=== PATIENT | female | born 1935 | race Caucasian/White ===

== ENCOUNTER 2018-07-26 22:52 | Emergency (ER) | payer OTHER ==
[2018-07-27] MEDS ORDERED: TETANUS & DIPHTHERIA TOX,ADULT 0.5 ML VIAL ONE (00:22)
[2018-07-27] MEDS ORDERED: MORPHINE 4 MG/ML SYR ONE (00:40)
--- NOTE | 2018-07-27 01:18 | EDPHYS ---
Physician Documentation [facility] Name: Barbi Rodriges Age: 82 yrs Sex: Female : 1935 Arrival Date: 07/26/2018 Time: 22:54 Bed 24 Private MD: ED Physician Noble Huston HPI: 07/27 00:18 This 82 yrs old Female presents to ER via Ambulatory with complaints of Fall kdr Injury. 00:18 Details of fall: The patient fell from an upright position, while walking. Onset: The kdr symptoms/episode began/occurred suddenly, at 18:00. Associated injuries: The patient sustained Left wrist and low back. Severity of symptoms: At their worst the symptoms were mild, in the emergency department the symptoms are unchanged. The patient has not experienced similar symptoms in the past. The patient has not recently seen a physician. 03:52 The patient was walking her dog and slipped in some water. Bystanders helped her up and kdr she walked about a block home.. She landed on her buttock. Historical: - Allergies: 07/26 23:18 No Known Allergies; fc - Home Meds: 23:19 Aspirin Oral once daily [Active]; lovastatin [Active]; Metoprolol Tartrate Oral tl3 [Active]; 23:18 Aspirin Oral once daily [Active]; lovastatin [Active]; Metoprolol Tartrate Oral fc [Active]; - PMHx: 23:18 Hypertension; High Cholesterol; Parkinsons; TIA; fc - PSHx: 23:18 FINGER SURGERY; CATARACT; Hysterectomy; fc - Immunization history: Last tetanus immunization: unknown. - Social history:: Smoking status: Patient/guardian denies using tobacco. - Ebola Screening: : Patient negative for fever greater than or equal to 101.5 degrees Fahrenheit, and additional compatible Ebola Virus Disease symptoms Patient denies exposure to infectious person Patient denies travel to an Ebola-affected area in the 21 days before illness onset. ROS: 07/27 03:52 Constitutional: Negative for fever, chills, and weight loss, Eyes: Negative for injury, kdr pain, redness, and discharge, ENT: Negative for injury, pain, and discharge, Neck: Negative for injury, pain, and swelling, Cardiovascular: Negative for chest pain, palpitations, and edema, Respiratory: Negative for shortness of breath, cough, wheezing, and pleuritic chest pain, Abdomen/GI: Negative for abdominal pain, nausea, vomiting, diarrhea, and constipation, : Negative for injury, bleeding, discharge, and swelling, Skin: Negative for injury, rash, and discoloration, Neuro: Negative for headache, weakness, numbness, tingling, and seizure activity. Psych: Negative for depression, anxiety, suicide ideation, homicidal ideation, and hallucinations, Allergy/Immunology: Negative for hives, rash, and allergies, Endocrine: Negative for neck swelling, polydipsia, polyuria, polyphagia, and marked weight changes, Hematologic/Lymphatic: Negative for swollen nodes, abnormal bleeding, and unusual bruising. Back: Positive for injury or acute deformity, decreased range of motion, pain at rest, pain with movement, of the lumbar area, She also has pain to her left wrist with mild deformity. Exam: 03:52 Constitutional: This is a well developed, well nourished patient who is awake, alert, kdr and in no acute distress. Head/Face: Normocephalic, atraumatic. Eyes: Pupils equal round and reactive to light, extra-ocular motions intact. Lids and lashes normal. Conjunctiva and sclera are non-icteric and not injected. Cornea within normal limits. Periorbital areas with no swelling, redness, or edema. Neck: Trachea midline, no thyromegaly or masses palpated, and no cervical lymphadenopathy. Supple, full range of motion without nuchal rigidity, or vertebral point tenderness. No Meningismus. Chest/axilla: Normal chest wall appearance and motion. Nontender with no deformity. No lesions are appreciated. Cardiovascular: Regular rate and rhythm with a normal S1 and S2. No gallops, murmurs, or rubs. Normal PMI, no JVD. No pulse deficits. Respiratory: Lungs have equal breath sounds bilaterally, clear to auscultation and percussion. No rales, rhonchi or wheezes noted. No increased work of breathing, no retractions or nasal flaring. Abdomen/GI: Soft, non-tender, with normal bowel sounds. No distension or tympany. No guarding or rebound. No evidence of tenderness throughout. Back: No spinal tenderness. No costovertebral tenderness. Full range of motion. Skin: Warm, dry with normal turgor. Normal color with no rashes, no lesions, and no evidence of cellulitis. Neuro: Awake and alert, GCS 15, oriented to person, place, time, and situation. Cranial nerves II-XII grossly intact. Motor strength 5/5 in all extremities. Sensory grossly intact. Cerebellar exam normal. Normal gait. Psych: Awake, alert, with orientation to person, place and time. Behavior, mood, and affect are within normal limits. 03:52 Musculoskeletal/extremity: ROM: limited active range of motion, limited passive range of motion, in the left wrist. Vital Signs: 07/26 23:00 BP 174 / 85; Pulse 72; Resp 18; Temp 98.0(O); Pulse Ox 95% on R/A; Weight 58.06 kg (R); fc Height 5 ft. 4 in. (162.56 cm) (R); Pain 7/10; 07/27 00:54 BP 166 / 74; Pulse 81; Pulse Ox 98% on R/A; rv 07/26 23:00 Body Mass Index 21.97 (58.06 kg, 162.56 cm) fc Washington Coma Score: 07/26 23:00 Eye Response: spontaneous(4). Verbal Response: oriented(5). Motor Response: obeys fc commands(6). Total: 15. Trauma Score (Adult): 23:00 Eye Response: spontaneous(1); Verbal Response: oriented(1); Motor Response: obeys fc commands(2); Systolic BP: > 89 mm Hg(4); Respiratory Rate: 10 to 29 per min(4); Washington Score: 15; Trauma Score: 12 MDM: 07/27 01:17 Patient medically screened. kdr 03:52 Data reviewed: vital signs, nurses notes, radiologic studies. Counseling: I had a kdr detailed discussion with the patient and/or guardian regarding: the historical points, exam findings, and any diagnostic results supporting the discharge/admit diagnosis, radiology results, the need for outpatient follow up. 07/26 23:29 Order name: Lumbar Spine (3 Views) XRAY fc 07/26 23:29 Order name: Wrist Left (3 View) XRAY 07/27 00:13 Order name: Wrist Splint: Left wrist; Complete Time: 00:51 kdr 07/27 00:13 [facility] 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 Exp: rv 09/18/2020. Lot #: [id number]. } Route: IM; Site: right deltoid; 01:25 Follow up: Response: No adverse reaction rv 00:38 Drug: morphine 4 mg Route: IM; Site: left deltoid; rv 01:25 Follow up: Response: No adverse reaction rv Disposition: 07/27/18 01:17 Discharged to Home. Impression: Other slipping, tripping and stumbling and falls, Pain in left wrist, Unspecified sprain of left wrist, Low back pain. - Condition is Stable. - Discharge Instructions: Musculoskeletal Pain, Back Pain, Adult, [id number], Wrist Pain, [id number], Wrist Sprain. - Medication Reconciliation Form, Thank You Letter, Prescription Opioid Use form. - Follow up: Private Physician; When: 2 - 3 days; Reason: If symptoms return, Further diagnostic work-up, Recheck today's complaints, Continuance of care, Re-evaluation by your physician. - Problem is new. - Symptoms have improved. Signatures: Dispatcher [employer] EDMS Noble Huston MD MD kdr Desi Mckeon RN RN Lashae Rivera RN RN tl3 Bay Jones, RN RN rv Corrections: (The following items were deleted from the chart) 01:26 01:17 07/27/2018 01:17 Discharged to Home. Impression: Other slipping, tripping and rv stumbling and falls; Pain in left wrist; Unspecified sprain of left wrist; Low back pain. Condition is Stable. Forms are Medication Reconciliation Form, Thank You Letter, Antibiotic Education, Prescription Opioid Use. Follow up: Private Physician; When: 2 - 3 days; Reason: If symptoms return, Further diagnostic work-up, Recheck today's complaints, Continuance of care, Re-evaluation by your physician. Problem is new. Symptoms have improved. kdr
--- NOTE | 2018-07-27 01:18 | ER ---
Nurse's Notes [facility] Name: Barbi Rodriges Age: 82 yrs Sex: Female : 1935 Arrival Date: 07/26/2018 Time: 22:54 Bed 24 Private MD: Diagnosis: Other slipping, tripping and stumbling and falls;Pain in left wrist;Unspecified sprain of left wrist;Low back pain Presentation: 07/26 23:00 Presenting complaint: Patient states: that she fell at 1800 and is having left wrist fc pain and butt pain. Denies hitting head. Care prior to arrival: Medication(s) given: Tylenol with codeine at 2250. Mechanism of Injury: Fall from standing position. Trauma event details: Injury occurred in the [facility], Injury occurred: at home. Injury occurred: July 26, 2018 Injury occurred at: 23:00. 23:00 Acuity: HEATHER 3 fc 23:00 Method Of Arrival: Ambulatory fc 23:00 Transition of care: patient was not received from another setting of care. Onset of fc symptoms was July 26, 2018 at 18:00. Risk Assessment: Do you want to hurt yourself or someone else? Patient reports no desire to harm self or others. Initial Sepsis Screen: Does the patient meet any 2 criteria? No. Patient's initial sepsis screen is negative. Does the patient have a suspected source of infection? No. Patient's initial sepsis screen is negative. Historical: - Allergies: 23:18 No Known Allergies; fc - Home Meds: 23:19 Aspirin Oral once daily [Active]; lovastatin [Active]; Metoprolol Tartrate Oral tl3 [Active]; 23:18 Aspirin Oral once daily [Active]; lovastatin [Active]; Metoprolol Tartrate Oral fc [Active]; - PMHx: 23:18 Hypertension; High Cholesterol; Parkinsons; TIA; fc - PSHx: 23:18 FINGER SURGERY; CATARACT; Hysterectomy; fc - Immunization history: Last tetanus immunization: unknown. - Social history:: Smoking status: Patient/guardian denies using tobacco. - Ebola Screening: : Patient negative for fever greater than or equal to 101.5 degrees Fahrenheit, and additional compatible Ebola Virus Disease symptoms Patient denies exposure to infectious person Patient denies travel to an Ebola-affected area in the 21 days before illness onset. Screenin:00 Abuse screen: Denies threats or abuse. Tuberculosis screening: No symptoms or risk fc factors identified. 23:00 Nutritional screening: No deficits noted. Fall Risk Fall in past 12 months (25 points). fc Secondary diagnosis (15 points) TIA, parkinson's. No IV (0 pts). Ambulatory Aid- None/Bed Rest/Nurse Assist (0 pts). Gait- Weak (10 pts.). Mental Status- Overestimates/Forgets Limitations (15 pts.). Total Emmanuel Fall Scale indicates Low Risk Score (25-44 pts). Fall prevention measures have been instituted. Side Rails Up X 2 Placed close to Nursing Station Frequent Obs/Assesments occuring Family Present and informed to notify staff if they need to leave bedside As available Patient and Family Educated on Fall Prevention Program and strategies. Primary Survey: 23:52 Breathing/Chest: Respiratory pattern: regular. Circulation: Cardiac rhythm: sinus rv rhythm. Disability Alert. 07/27 01:25 Reassessment Breathing/Chest Respiratory pattern Regular. rv Assessment: 07/26 23:15 General: Appears uncomfortable, slender, well groomed, well developed, well nourished, tl3 Behavior is calm, cooperative, appropriate for age. Pain: Complains of pain in left wrist Pain currently is 7 out of 10 on a pain scale. Neuro: Level of Consciousness is awake, alert, Oriented to person, place, time, situation, Appropriate for age. Cardiovascular: Patient's skin is warm and dry. Respiratory: Airway is patent Respiratory effort is even, unlabored, Respiratory pattern is regular, symmetrical. GI: No signs and/or symptoms were reported involving the gastrointestinal system. : No signs and/or symptoms were reported regarding the genitourinary system. EENT: No signs and/or symptoms were reported regarding the EENT system. Derm: No signs and/or symptoms reported regarding the dermatologic system. Musculoskeletal: Capillary refill < 3 seconds, in left fingers. Range of motion: limited in left wrist Swelling present in left wrist. 07/27 00:53 Reassessment: Patient appears in no apparent distress at this time. Patient and/or rv family updated on plan of care and expected duration. Pain level reassessed. Patient is alert, oriented x 3, equal unlabored respirations, skin warm/dry/pink. Vital Signs: 07/26 23:00 BP 174 / 85; Pulse 72; Resp 18; Temp 98.0(O); Pulse Ox 95% on R/A; Weight 58.06 kg (R); fc Height 5 ft. 4 in. (162.56 cm) (R); Pain 7/10; 07/27 00:54 BP 166 / 74; Pulse 81; Pulse Ox 98% on R/A; rv 07/26 23:00 Body Mass Index 21.97 (58.06 kg, 162.56 cm) fc Viviane Coma Score: 07/26 23:00 Eye Response: spontaneous(4). Verbal Response: oriented(5). Motor Response: obeys commands(6). Total: 15. Trauma Score (Adult): 23:00 Eye Response: spontaneous(1); Verbal Response: oriented(1); Motor Response: obeys commands(2); Systolic BP: > 89 mm Hg(4); Respiratory Rate: 10 to 29 per min(4); Viviane Score: 15; Trauma Score: 12 ED Course: 22:54 Patient arrived in ED. ag3 23:00 Patient has correct armband on for positive identification. Bed in low position. Call fc light in reach. Side rails up X 1. 23:00 Arm band placed on Patient placed in an exam room, on a stretcher. fc 23:00 Patient maintains SpO2 saturation greater than 95% on room air. fc 23:14 Triage completed. fc 23:15 Lashae Rivera, RN is Primary Nurse. tl3 23:19 No provider procedures requiring assistance completed. Patient did not have IV access tl3 during this emergency room visit. 23:38 Patient moved to radiology via stretcher. ag1 23:50 Noble Huston MD is Attending Physician. kdr 23:51 X-ray completed. Patient tolerated procedure well. ag1 23:51 Lumbar Spine (3 Views) XRAY In Process Unspecified. EDMS 23:52 Wrist Left (3 View) XRAY In Process Unspecified. EDMS 23:52 Thermoregulation: warm blanket given to patient. 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 Exp: rv 09/18/2020. Lot #: [id number]. } Route: IM; Site: right deltoid; 01:25 Follow up: Response: No adverse reaction rv 00:38 Drug: morphine 4 mg Route: IM; Site: left deltoid; rv 01:25 Follow up: Response: No adverse reaction rv Outcome: 01:17 Discharge ordered by . kdr 01:25 Discharged to home via wheelchair. rv 01:25 Condition: good 01:25 Discharge instructions given to patient, family, Instructed on discharge instructions, follow up and referral plans. Demonstrated understanding of instructions, follow-up care, splint care. 01:26 Patient left the ED. rv Signatures: Dispatcher [employer] EDMS Noble Huston MD MD [facility] Desi Mckeon RN RN Shelli Cam ag1 Demetra Pittman jb5 Lashae Rivera RN RN tl3 Bay Jones RN RN Amy Carrillo ag3
--- NOTE | 2018-07-27 08:45 | RAD REPORT ---
EXAM DESCRIPTION: RAD - Wrist Left 3 View - 07/26/2018 11:52 pm CLINICAL HISTORY: Fall, wrist pain COMPARISON: None. FINDINGS: No fracture of the distal radius or ulna identifiable. Scapholunate joint space is normal. There is mild narrowing of the radiocarpal joint space. Patient has advanced degenerative change at the scaphoid articulation with the trapezium and trapezoi d bones. There is a flattened sclerotic contour to the distal aspect of the scaphoid articular surfac e. There are sclerotic changes and concavity to the articular surfaces of the trapezium and trapezoid with widening of the joint space between the scaphoid trapezium and trapezoid bones. Patient has add itional more mild degenerative change at the trapezium first metacarpal articulation. Assessment of the scaphoid is limited. Transverse fracture of the midbody scaphoid is suspected. The widening of the scaphoid trapezium joint spaces and usual. Patient could have scar tissue or granulat ion tissue filling this joint space. Patient alternatively could have posttraumatic ligamentous disru ption causing joint space laxity. No foreign body or other soft tissue abnormality. IMPRESSION: Suspected fracture of the scaphoid. Prominent degenerative change at the articulation of the scaphoid with the trapezium and trapezoid ana yan. Significant widening of this joint space could be secondary to a ligamentous disruption or possi farhat scar tissue or granulation tissue within this joint space.
--- NOTE | 2018-07-27 09:54 | RAD REPORT ---
EXAM DESCRIPTION: RAD - Lumbar Spine 3 Views - 07/26/2018 11:59 pm CLINICAL HISTORY: Fall, back pain COMPARISON: July 10 FINDINGS: A three-view lumbar spine examination was performed. Lumbar body height and alignment are unchanged from the prior study. Left convex degenerative scoliotic curvature remains. There is slight retrolisthesis of L2 on L3. Advanced disc degenerative change throughout the lumbar spine. No pathol ogic bone process seen. Disc space narrowing is seen at multiple levels. No pars defects identified. IMPRESSION: No compression fracture or acute vertebral body finding. Extensive lumbar degenerative changes are present similar to July 10.
== END 2018-07-27 01:26 | disposition home or self-care (01) ==
LOC: ER 22:52
DX: S63.502A Unspecified sprain of left wrist, initial encounter (principal); M54.5 Low back pain; W01.0XXA Fall on same level from slipping, tripping and stumbling without subsequent striking against object, initial encounter; Y93.K1 Activity, walking an animal; Y92.9 Unspecified place or not applicable; Z23 Encounter for immunization; Z79.82 Long term (current) use of aspirin; I10 Essential (primary) hypertension; G20 Parkinson's disease; E78.00 Pure hypercholesterolemia, unspecified
CPT/HCPCS: 72100; 90714; 96372; 99284

== ENCOUNTER 2019-11-19 15:51 | Emergency (ER) | payer OTHER ==
--- NOTE | 2019-11-19 17:01 | RAD REPORT ---
EXAM DESCRIPTION: CT - Facial Bones W/ Mpr - 11/19/2019 4:38 pm CLINICAL HISTORY: Facial injury status post fall. Facial pain COMPARISON: None TECHNIQUE: Computed axial tomography of the face was obtained. Coronal and sagittal reconstruction w as performed. All CT scans are performed using dose optimization technique as appropriate and may include automated exposure control or mA/KV adjustment according to patient size. FINDINGS: A fracture is not seen. A TMJ dislocation is not noted. The globes are intact. Fluid within the sinuses is not seen. Nasal septum is deviated towards the right IMPRESSION: Negative for a facial fracture.
--- NOTE | 2019-11-19 17:05 | RAD REPORT ---
EXAM DESCRIPTION: CT - Head C Spine Mpr Wo Con - 11/19/2019 4:38 pm CLINICAL HISTORY: Head and neck injury status post fall. Head and neck pain COMPARISON: None. TECHNIQUE: Computed axial tomography of the head and cervical spine was obtained. Sagittal and coronal reconstruction was performed. All CT scans are performed using dose optimization technique as appropriate and may include automated exposure control or mA/KV adjustment according to patient size. FINDINGS: An intracranial bleed is not seen. The ventricles are normal in caliber. An extra-axial fl uid collection is not noted. Mild to moderate low-density areas within periventricular, deep and subc ortical white matter likely ischemic changes secondary to small vessel disease. Fluid within the visu alized sinuses and mastoids is not seen A cervical fracture is not visualized. No dislocation is noted. IMPRESSION: No acute intracranial abnormality is seen. A cervical fracture is not visualized. If the patient continues to have symptoms to suggest intracra nial /spinal cord pathology then MRI would be recommended
--- NOTE | 2019-11-19 17:16 | RAD REPORT ---
EXAM DESCRIPTION: RAD - Hip Right 2 View - 11/19/2019 5:00 pm CLINICAL HISTORY: Right hip pain FINDINGS: No fracture or dislocation is seen. The bones are osteoporotic. If the patient continues to have symptoms to suggest an occult fracture MRI would be recommended
--- NOTE | 2019-11-19 17:17 | RAD REPORT ---
EXAM DESCRIPTION: RAD - Knee Right 3 View - 11/19/2019 5:00 pm CLINICAL HISTORY: Right knee pain status post injury FINDINGS: No fracture or dislocation is seen. The bones are osteoporotic
--- NOTE | 2019-11-19 17:20 | RAD REPORT ---
EXAM DESCRIPTION: RAD - Hand Right 3 View - 11/19/2019 5:00 pm CLINICAL HISTORY: Right hand pain status post injury FINDINGS: Moderately displaced oblique fracture involves the mid aspect of fourth proximal phalanx. The bones are osteoporotic. 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
--- NOTE | 2019-11-19 17:25 | ER ---
Nurse's Notes [facility] Name: Barbi Rodriges Age: 84 yrs Sex: Female : 1935 Arrival Date: 11/19/2019 Time: 15:57 Bed 26 Private MD: Ritesh Morales Diagnosis: Superficial injury of head;Contusion of right knee;Contusion of nose;Displaced fracture of proximal phalanx of right ring finger Presentation: 11/19 16:12 Presenting complaint: Child states: She has Parkinson's. She was at a when she ca1 tripped and fell forward about an hour ago. Denies LOC, Not on blood thinners. Lac and bruising on nose visible. C/O of R knee, R hip, R hand pain. Transition of care: patient was not received from another setting of care. Onset of symptoms was November 19, 2019. Risk Assessment: Do you want to hurt yourself or someone else? Patient reports no desire to harm self or others. Initial Sepsis Screen: Does the patient meet any 2 criteria? No. Patient's initial sepsis screen is negative. Does the patient have a suspected source of infection? No. Patient's initial sepsis screen is negative. Care prior to arrival: None. 16:12 Method Of Arrival: Wheelchair ca1 16:12 Acuity: HEATHER 3 ca1 16:21 Mechanism of Injury: Fall from standing position. Trauma event details: Injury occurred ca1 in the [facility], Injury occurred: November 19, 2019 Injury occurred at: 15:00. Trauma Activation: Not Applicable Physician: ED Physician; Name: ; Notified At: ; Arrived At: Physician: General Surgeon; Name: ; Notified At: ; Arrived At: Physician: Radiology; Name: ; Notified At: ; Arrived At: Physician: Respiratory; Name: ; Notified At: ; Arrived At: Physician: Lab; Name: ; Notified At: ; Arrived At: Historical: - Allergies: 16:20 No Known Allergies; ca1 - Home Meds: 16:20 Lovastatin Oral [Active]; Meclizine Oral [Active]; Metoprolol Tartrate Oral [Active]; ca1 Hydralazine Oral [Active]; Carbidopa-Levodopa Oral [Active]; - PMHx: 16:20 High Cholesterol; Hypertension; Parkinsons; TIA; ca1 - Immunization history:: Adult Immunizations up to date, Last tetanus immunization: unknown, Pneumococcal vaccine is up to date, Flu vaccine is up to date. - Coronavirus screen:: The patient has NOT traveled to [place] in the past 14 days. The patient has NOT had contact with known/suspected case of Coronavirus?. - Immunization history: Last tetanus immunization: unknown. - Social history:: Smoking status: Patient denies any tobacco usage or history of. - Ebola Screening: : Patient negative for fever greater than or equal to 101.5 degrees Fahrenheit, and additional compatible Ebola Virus Disease symptoms Patient denies exposure to infectious person Patient denies travel to an Ebola-affected area in the 21 days before illness onset No symptoms or risks identified at this time. Screenin:21 Abuse screen: Denies threats or abuse. Denies injuries from another. Tuberculosis ca1 screening: No symptoms or risk factors identified. 16:27 Nutritional screening: No deficits noted. Fall Risk Fall in past 12 months (25 points). ca1 Secondary diagnosis (15 points) TIA, impaired mobility, IV access (20 points). Gait- Impaired (20 pts.). Total Emmanuel Fall Scale indicates High Risk Score (45 or more points). Fall prevention measures have been instituted. Side Rails Up X 2 Family Present and informed to notify staff if the need to leave the bedside As available patient and family educated on Fall Prevention Program and Strategies. Primary Survey: 16:21 NO uncontrolled hemorrhage observed. Breathing/Chest: Respiratory pattern: regular, ca1 Respiratory effort: spontaneous, unlabored, Chest inspection: symmetrical rise and fall of the chest. Circulation: Skin color: pink, Skin temperature: warm, dry. Disability Alert. Exposure/Environment: All clothing and personal items were removed. Forensic evidence collection is not deemed to be indicated at this time. Items placed in patient belonging bag. There is no evidence of uncontrolled external bleeding. Obvious injury(ies) are noted at this time: bruising on R hand, R knee, lac and bruising on nose A warming method has been applied: A warm blanket has been provided to the patient. 17:17 Reassessment Airway Airway Breathing/Chest Respiratory pattern Regular Respiratory ca1 effort Spontaneous Unlabored Chest inspection Symmetrical Circulation Heart tones Present Pulses Palpable Color [place] Temperature Warm Dry. Assessment: 16:21 General: Appears in no apparent distress. comfortable, Behavior is cooperative, ca1 appropriate for age, anxious. Pain: Complains of pain in right hip, right arm and right leg. Neuro: Level of Consciousness is awake, alert, obeys commands, Oriented to person, place, time, situation. EENT: No signs and/or symptoms were reported regarding the EENT system. Cardiovascular: Heart tones S1 S2 present Capillary refill < 3 seconds Patient's skin is warm and dry. Respiratory: Airway is patent Respiratory effort is even, unlabored, Respiratory pattern is regular, symmetrical. Derm: Skin is intact, is healthy with good turgor, Skin is pink, warm \T\ dry. Musculoskeletal: Circulation, motion, and sensation intact. Capillary refill < 3 seconds. 17:17 Reassessment: Patient appears in no apparent distress at this time. Patient and/or ca1 family updated on plan of care and expected duration. Pain level reassessed. Patient is alert, oriented x 3, equal unlabored respirations, skin warm/dry/pink. 17:45 Reassessment: Patient appears in no apparent distress at this time. Patient is alert, ca1 oriented x 3, equal unlabored respirations, skin warm/dry/pink. Vital Signs: 16:20 BP 156 / 75; Pulse 66; Resp 17 S; Temp 98(O); Pulse Ox 99% on R/A; Weight 54.43 kg (R); ca1 Height 5 ft. 5 in. (165.10 cm) (R); 17:17 BP 168 / 69; Pulse 66; Resp 17 S; Pulse Ox 97% on R/A; ca1 17:45 BP 158 / 85; Pulse 66; Resp 17 S; Pulse Ox 99% on R/A; ca1 16:20 Body Mass Index 19.97 (54.43 kg, 165.10 cm) ca1 Dinosaur Coma Score: 16:21 Eye Response: spontaneous(4). Verbal Response: oriented(5). Motor Response: obeys ca1 commands(6). Total: 15. 18:02 Eye Response: spontaneous(4). Verbal Response: oriented(5). Motor Response: obeys mg2 commands(6). Total: 15. Trauma Score (Adult): 16:21 Eye Response: spontaneous(1); Verbal Response: oriented(1); Motor Response: obeys ca1 commands(2); Systolic BP: > 89 mm Hg(4); Respiratory Rate: 10 to 29 per min(4); Viviane Score: 15; Trauma Score: 12 18:02 Eye Response: spontaneous(1); Verbal Response: oriented(1); Motor Response: obeys mg2 commands(2); Systolic BP: > 89 mm Hg(4); Respiratory Rate: 10 to 29 per min(4); [place]inosaur Score: 15; Trauma Score: 12 ED Course: 15:57 Patient arrived in ED. mr 15:57 Ritesh Morales MD is Private Physician. mr 16:02 George Vanessa PA is PHCP. jr8 16:02 Cecil Sr MD is Attending Physician. jr8 16:12 Carmela Salomon, DAVID is Primary Nurse. ca1 16:16 Triage completed. ca1 16:20 Arm band placed on right wrist. ca1 16:21 Patient has correct armband on for positive identification. Placed in gown. Bed in low ca1 position. Call light in reach. Side rails up X2. 16:21 Patient maintains SpO2 saturation greater than 95% on room air. ca1 16:27 Pulse ox on. NIBP on. Warm blanket given. ca1 16:28 Thermoregulation: warm blanket given to patient. ca1 16:44 CT Head C Spine In Process Unspecified. EDMS 16:44 Facial Bones W/O Con CT In Process Unspecified. EDMS 17:02 XRAY Hand RIGHT 3 View In Process Unspecified. EDMS 17:02 XRAY Knee RIGHT 3 view In Process Unspecified. EDMS 17:02 XRAY Hip RIGHT 2 view In Process Unspecified. EDMS 17:23 Eric Wright MD is Referral Physician. jr8 18:01 No provider procedures requiring assistance completed. Patient did not have IV access mg2 during this emergency room visit. Orthoglass splint: Ulnar gutter/Boxer splint applied on right forearm. applied by KASANDRA Mcbride and checked by the provider prior to dc. Administered Medications: No medications were administered Intake: 18:03 PO: 0ml; Total: 0ml. mg2 Outcome: 17:25 Discharge ordered by . jr8 18:03 Discharged to home ambulatory, with family. mg2 18:03 Condition: good 18:03 Discharge instructions given to patient, family, Instructed on discharge instructions, follow up and referral plans. Demonstrated understanding of instructions, follow-up care, splint care. 18:03 Patient's length of stay was not longer than 2 hours. mg2 18:04 Patient left the ED. mg2 Signatures: Dispatcher [employer] EDMS ToddVivian VeritoGeorge cason PA PA jr8 Vincent Garcia, RN RN mg2 Carmela Salomon RN RN ca1
--- NOTE | 2019-11-19 17:26 | EDPHYS ---
Physician Documentation [facility] Name: Barbi Rodriges Age: 84 yrs Sex: Female : 1935 Arrival Date: 11/19/2019 Time: 15:57 Bed 26 Private MD: Ritesh Morales ED Physician Cecil Sr HPI: 11/19 16:18 This 84 yrs old Female presents to ER via Wheelchair with complaints of Fall jr8 Injury. 16:18 Details of fall: The patient fell from an upright position, while standing. Onset: The jr8 symptoms/episode began/occurred acutely, today. Associated injuries: The patient sustained injury to the head, right hand and right leg, face. Severity of symptoms: At their worst the symptoms were moderate, in the emergency department the symptoms are unchanged. The patient has not experienced similar symptoms in the past. The patient has not recently seen a physician. Patient was at and misstep causing her to fall and hit face and right side of body. Pain since incident. Denies LOC . Historical: - Allergies: 16:20 No Known Allergies; ca1 - Home Meds: 16:20 Lovastatin Oral [Active]; Meclizine Oral [Active]; Metoprolol Tartrate Oral [Active]; ca1 Hydralazine Oral [Active]; Carbidopa-Levodopa Oral [Active]; - PMHx: 16:20 High Cholesterol; Hypertension; Parkinsons; TIA; ca1 - Immunization history:: Adult Immunizations up to date, Last tetanus immunization: unknown, Pneumococcal vaccine is up to date, Flu vaccine is up to date. - Coronavirus screen:: The patient has NOT traveled to [place] in the past 14 days. The patient has NOT had contact with known/suspected case of Coronavirus?. - Immunization history: Last tetanus immunization: unknown. - Social history:: Smoking status: Patient denies any tobacco usage or history of. - Ebola Screening: : Patient negative for fever greater than or equal to 101.5 degrees Fahrenheit, and additional compatible Ebola Virus Disease symptoms Patient denies exposure to infectious person Patient denies travel to an Ebola-affected area in the 21 days before illness onset No symptoms or risks identified at this time. ROS: 16:18 Eyes: Negative for injury, pain, redness, and discharge, Neck: Negative for injury, jr8 pain, and swelling, Cardiovascular: Negative for chest pain, palpitations, and edema, Respiratory: Negative for shortness of breath, cough, wheezing, and pleuritic chest pain, Abdomen/GI: Negative for abdominal pain, nausea, vomiting, diarrhea, and constipation, Back: Negative for injury and pain. 16:18 ENT: Positive for injury or acute deformity, Negative for dental pain. 16:18 MS/extremity: Positive for ecchymosis, pain, swelling, tenderness, of the right hand and right leg. 16:18 Skin: Positive for abrasion(s). 16:18 Neuro: Positive for headache, Negative for altered mental status, dizziness, loss of consciousness, syncope. Exam: 16:18 Eyes: Pupils equal round and reactive to light, extra-ocular motions intact. Lids and jr8 lashes normal. Conjunctiva and sclera are non-icteric and not injected. Cornea within normal limits. Periorbital areas with no swelling, redness, or edema. Neck: Trachea midline, no thyromegaly or masses palpated, and no cervical lymphadenopathy. Supple, full range of motion without nuchal rigidity, or vertebral point tenderness. No Meningismus. Chest/axilla: Normal chest wall appearance and motion. Nontender with no deformity. No lesions are appreciated. Cardiovascular: Regular rate and rhythm with a normal S1 and S2. No gallops, murmurs, or rubs. Normal PMI, no JVD. No pulse deficits. Respiratory: Lungs have equal breath sounds bilaterally, clear to auscultation and percussion. No rales, rhonchi or wheezes noted. No increased work of breathing, no retractions or nasal flaring. Abdomen/GI: Soft, non-tender, with normal bowel sounds. No distension or tympany. No guarding or rebound. No evidence of tenderness throughout. Back: No spinal tenderness. No costovertebral tenderness. Full range of motion. Skin: Warm, dry with normal turgor. Normal color with no rashes, no lesions, and no evidence of cellulitis. Neuro: Awake and alert, GCS 15, oriented to person, place, time, and situation. Cranial nerves II-XII grossly intact. Motor strength 5/5 in all extremities. Sensory grossly intact. Cerebellar exam normal. Normal gait. 16:18 ENT: Exam is negative for earache, ear discharge, hemotympanum, TM abnormalities, Nose: External nose: abrasion is noted, deformity is noted, swelling is noted, Nasal septum: deviates to the left, no septal hematoma appreciated, Nasal mucosa: moist, Turbinates: are normal, bleeding, is not appreciated, Mouth: is normal, no laceration, no gum abnomalities, no lip abnormalities, no mucosal abnormalities, no tongue abnormalities, Posterior pharynx: Airway: patent, Uvula: midline, Dental exam: normal, no avulsion, no fractured teeth, no gum swelling, no injury, no malocclusion, no missing teeth, no pain, no trismus. 16:18 Musculoskeletal/extremity: Extremities: grossly normal except: noted in the right hand: Patient has swelling and small hematoma to right dorsal hand at the 4th and 5th MCP joints. Bruising to distal 3rd digit, noted in the right knee: ecchymosis, pain, tenderness, anterior right knee over the patella, pain, tenderness, right lateral hip over the greater trochanteric region , ROM: intact in all extremities, limited active range of motion due to pain, in the right leg, Circulation is intact in all extremities. Pulses: noted to be 2+ in the right radial artery, right dorsalis pedis artery, left radial artery and left dorsalis pedis artery, Sensation intact. Vital Signs: 16:20 BP 156 / 75; Pulse 66; Resp 17 S; Temp 98(O); Pulse Ox 99% on R/A; Weight 54.43 kg (R); ca1 Height 5 ft. 5 in. (165.10 cm) (R); 17:17 BP 168 / 69; Pulse 66; Resp 17 S; Pulse Ox 97% on R/A; ca1 17:45 BP 158 / 85; Pulse 66; Resp 17 S; Pulse Ox 99% on R/A; ca1 16:20 Body Mass Index 19.97 (54.43 kg, 165.10 cm) ca1 [place] Coma Score: 16:21 Eye Response: spontaneous(4). Verbal Response: oriented(5). Motor Response: obeys ca1 commands(6). Total: 15. 18:02 Eye Response: spontaneous(4). Verbal Response: oriented(5). Motor Response: obeys mg2 commands(6). Total: 15. Trauma Score (Adult): 16:21 Eye Response: spontaneous(1); Verbal Response: oriented(1); Motor Response: obeys ca1 commands(2); Systolic BP: > 89 mm Hg(4); Respiratory Rate: 10 to 29 per min(4); [place] Score: 15; Trauma Score: 12 18:02 Eye Response: spontaneous(1); Verbal Response: oriented(1); Motor Response: obeys mg2 commands(2); Systolic BP: > 89 mm Hg(4); Respiratory Rate: 10 to 29 per min(4); Viviane Score: 15; Trauma Score: 12 Procedures: 17:09 Splinting: Splint applied to right hand using Orthoglass splint, ulnar gutter splint. jr8 applied by tech. nurse. Examined by me, post splint application: neurovascular intact, 2+ distal pulses palpable, brisk capillary refill noted, Patient tolerated well. MDM: 16:05 Patient medically screened. jr8 17:09 Data reviewed: vital signs, nurses notes, radiologic studies, CT scan, plain films. jr8 Data interpreted: Pulse oximetry: on room air is 99 %. Interpretation: normal. Counseling: I had a detailed discussion with the patient and/or guardian regarding: the historical points, exam findings, and any diagnostic results supporting the discharge/admit diagnosis, radiology results, the need for outpatient follow up, a hand specialist, to return to the emergency department if symptoms worsen or persist or if there are any questions or concerns that arise at home. 11/19 16:17 Order name: CT Head C Spine; Complete Time: 17:20 11/19 16:17 Order name: Facial Bones W/O Con CT; Complete Time: 17:20 11/19 16:17 Order name: XRAY Hand RIGHT 3 View; Complete Time: 17:27 11/19 16:17 Order name: XRAY Knee RIGHT 3 view; Complete Time: 17:23 11/19 16:17 Order name: XRAY Hip RIGHT 2 view; Complete Time: 17:23 11/19 17:25 Order name: Ulnar Gutter splint; Complete Time: 17:54 11/19 18:02 Order name: Sling; Complete Time: 18:02 mg2 Administered Medications: No medications were administered Disposition: 18:04 Co-signature as Attending Physician, Cecil Sr MD. rn Disposition: 11/19/19 17:25 Discharged to Home. Impression: Superficial injury of head, Contusion of right knee, Contusion of nose, Displaced fracture of proximal phalanx of right ring finger. - Condition is Stable. - Discharge Instructions: Contusion, Finger Fracture, Head Injury, Adult, Hematoma, Knee Pain. - Medication Reconciliation Form, Thank You Letter, Antibiotic Education, Prescription Opioid Use form. - Follow up: Eric Wright MD; When: 2 - 3 days; Reason: Recheck today's complaints, Continuance of care, Re-evaluation by your physician. - Problem is new. - Symptoms have improved. - Notes: Tylenol and Motrin as needed for pain Signatures: Dispatcher [employer] EDMS Cecil Sr MD MD rn Roszak, Josh, PA PA jr8 Vincent Garcia RN RN mg2 Carmela Salomon RN RN ca1 Corrections: (The following items were deleted from the chart) 17:02 16:18 Musculoskeletal/extremity: Extremities: grossly normal except: noted in the right jr8 hand: Patient has swelling and small hematoma to right dorsal hand at the 4th and 5th MCP joints, noted in the right knee: ecchymosis, pain, tenderness, anterior right knee over the patella, pain, tenderness, right lateral hip over the greater trochanteric region , ROM: intact in all extremities, limited active range of motion due to pain, in the right leg, Circulation is intact in all extremities. Pulses: noted to be 2+ in the right radial artery, right dorsalis pedis artery, left radial artery and left dorsalis pedis artery, Sensation intact. jr8 17:25 17:08 Splint - Volar Wrist Splint ordered. 8 8 17:26 17:09 Splinting: Splint applied to right hand using Orthoglass splint, Volar splint. jr8 applied by tech. nurse. Examined by me, post splint application: neurovascular intact, 2+ distal pulses palpable, brisk capillary refill noted, Patient tolerated well, jr8 18:04 17:25 11/19/2019 17:25 Discharged to Home. Impression: Superficial injury of head; mg2 Contusion of right knee; Contusion of nose; Displaced fracture of proximal phalanx of right ring finger. Condition is Stable. Forms are Medication Reconciliation Form, Thank You Letter, Antibiotic Education, Prescription Opioid Use. Follow up: Eric Wright; When: 2 - 3 days; Reason: Recheck today's complaints, Continuance of care, Re-evaluation by your physician. Problem is new. Symptoms have improved. jr8
[2019-11-19 18:46] VITALS: TEMP 98
[2019-11-19 18:49] VITALS: BP 158/85; O2SAT 99
== END 2019-11-19 18:04 | disposition home or self-care (01) ==
LOC: ER 15:51
PROC: 2W3CX1Z Immobilization of Right Lower Arm using Splint (ICD-10-PCS; principal; 2019-11-19)
DX: S62.614A Displaced fracture of proximal phalanx of right ring finger, initial encounter for closed fracture (principal); S80.01XA Contusion of right knee, initial encounter; S00.33XA Contusion of nose, initial encounter; W18.39XA Other fall on same level, initial encounter; Y93.89 Activity, other specified; Y92.29 Other specified public building as the place of occurrence of the external cause; I10 Essential (primary) hypertension
CPT/HCPCS: 70450; 70486; 72125; 76377; 99284

== ENCOUNTER 2021-03-30 07:58 | Day surgery (SDC) | payer OTHER ==
[2021-03-29 10:52] LABS: Absolute Lymphocytes (CBC) 2.2 K/uL (0.7-4.9); Basophils % 2.7 % (0-1.3); Hematocrit 34.9 % (36.0-45.0); Lymphocytes % 30.1 % (15.3-44.8); RBC Red Blood Cell Count 4.03 M/uL (3.86-4.86)
--- NOTE | 2021-03-29 11:19 | RAD REPORT ---
EXAM DESCRIPTION: RAD - Chest Pa And Lat (2 Views) - 03/29/2021 10:30 am CLINICAL HISTORY: preop, pending abdominal surgery COMPARISON: December 2013 TECHNIQUE: Frontal and lateral views of the chest were obtained. FINDINGS: The lungs are clear of a focal finding. Apical scarring changes are present with a mild di ffuse fibrotic lung pattern. No failure or volume overload. Heart size is normal and central vascula ture is within normal limits. No pleural effusion or pneumothorax seen. No acute bony finding noted . Bones are osteopenic. No aortic abnormality. IMPRESSION: Fibrotic lung pattern similar to comparison. No acute cardiopulmonary finding.
[2021-03-29 11:21] LABS: Potassium 4.3 mmol/L (3.5-5.1)
--- NOTE | 2021-03-29 12:54 | EKG ---
Test Date: 2021-03-29 Test Time: 09::29 Regional Loss Prevention Manager: IAIN MEASUREMENT RESULTS: Intervals: Rate: 63 DE: 188 QRSD: 92 QT: 448 QTc: 458 [place]: P: 65 DE: 188 QRS: 53 T: 70 INTERPRETIVE STATEMENTS: Normal sinus rhythm Normal ECG Compared to ECG 11/24/2019 11:52:26 Atrial premature complex(es) no longer present Left ventricular hypertrophy no longer present ST (T wave) deviation no longer present Electronically Signed On 03-29-21 12:53:39 CDT by Guille Das
[2021-03-30] MEDS ORDERED: Ringers Lactate 1,000 ML IV ONE (08:28)
[2021-03-30] MEDS ORDERED: propofoL 200 MG/20 ML VIAL IV ONE (10:18)
[2021-03-30] MEDS ORDERED: FENTANYL CITR 100 MCG/2 ML ONE (10:20)
[2021-03-30] MEDS ORDERED: LIDOCAINE 1% MPF 2 ML AMPULE ONE (10:20)
[2021-03-30] MEDS ORDERED: ONDANSETRON 4 MG/2 ML VIAL ONE (10:20)
[2021-03-30] MEDS ORDERED: CEFAZOLIN/SWI 1gm 1 GM/10 ML SYR ONE (11:12)
--- NOTE | 2021-03-30 12:18 | P.BOP ---
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 Wide excision with frozen section R upper arm squamous cell carcinoma Secondary procedure: 2. Wide excision facial skin mass Other procedure(s): 3. Wide excision of lower lips hyperpigmentated skin mass Estimated blood loss: <10cc Specimen: mass Findings: as above Anesthesia: General Complications: None Transferred to: Recovery Room Condition: Good
[2021-03-30] MEDS ORDERED: KETOROLAC 30 MG/ML INJ ONE (12:29)
--- NOTE | 2021-03-30 13:33 | OP ---
Date of Procedure: 03/30/2021 Surgeon: Broderick Goncalves MD Diagnosis: Right upper arm, face and lip skin masses. Postoperative Diagnoses: Right upper arm, face and lip skin masses, right upper arm squamous cell ca rcinoma. Procedures: 1.Wide excision with frozen section of right upper arm squamous cell carcinoma. 2.Wide excision of facial skin mass. 3.Wide excision with frozen section of lower lip hyperpigmented skin mass. Estimated Blood Loss: Less than 10 cc. Specimen: Masses. Findings: The patient has squamous cell carcinoma, right upper arm. The face mass will be sent for permanent section and mass #3 looked like probably a hemangioma per Dr. Worrell. Anesthesia: General plus local. Indications: This is the case of an 85-year-old patient with above diagnosis. Fully explained the b enefits, alternatives, and risks of excisional biopsy of frozen section of multiple lesions on her ana dy with benefits, alternatives, and risks fully explained which include, but not limited to infection , bleeding, damage to adjacent structures, anesthesia complication, recurrence, [place], and even . She also understands this may not relieve symptoms. She might need more than one surgical interventi on. She understood, signed a consent. Description Of Procedure: The area of concern was marked by me and the patient and the daughter who happens to work in our office in the surgical area. After that, we brought the patient to the operat ing room, placed in supine position. Anesthesia was induced without complication. Each area was pre pped and draped in usual sterile fashion for each case. We used a different instruments, different B ovie, different gloves, different setting to avoid cross contamination. We started first with the [facility] upper arm. A wedge incision was made on the skin with gross negative margins all the way down to fatty tissue, marked for orientation, sent to the pathologist, came back with squamous cell carcinom a. The area was closed with 3-0 chromic and 3-0 nylon. The area of the face was removed in a wedge fashion. It was so tiny that we are going to leave for permanent section. The area was closed with 3 -0 nylon. The area of the lip, we once again made this in a wedge fashion all the way to fatty tissu e. Skin sent to the pathologist who confirmed the lesion to be possible hemangioma, but no evidence of malignancy. So, we closed the area with 3-0 chromic. We left the skin to close by secondary inte ntion. The patient tolerated each procedure well. Hemostasis was obtained in each case. The patient was sent to recovery in stable condition. Discharge Summary: Diagnoses: Right upper arm squamous cell carcinoma, facial hyperpigmented lesion, lip hyperpigmented lesion. Activity: As tolerated. No heavy lifting. Plan: Follow up in my office in 1 week. Call for appointment [phone]. The patient will keep the a rm dry for 48 hours, then may remove that and put triple antibiotics over 3 [address]. Condition: Stable. Disposition: Home. EDISON/LYNDA Voice ID: [id number] Report ID: [id number]
[2021-03-30 13:53] VITALS: BP 169/66; TEMP 96.7; O2SAT 100
== END 2021-03-30 13:47 | disposition home or self-care (01) ==
LOC: OR 07:58
PROVIDERS: ATTEND Surgery
PROC: 0JBD0ZZ Excision of Right Upper Arm Subcutaneous Tissue and Fascia, Open Approach (ICD-10-PCS; principal; 2021-03-30 09:30)
PROC: 0JB10ZZ Excision of Face Subcutaneous Tissue and Fascia, Open Approach (ICD-10-PCS; 2021-03-30 09:30)
DX: C44.622 Squamous cell carcinoma of skin of right upper limb, including shoulder (principal); D04.39 Carcinoma in situ of skin of other parts of face; D18.01 Hemangioma of skin and subcutaneous tissue; R22.0 Localized swelling, mass and lump, head; G20 Parkinson's disease; Z86.73 Personal history of transient ischemic attack (TIA), and cerebral infarction without residual deficits
CPT/HCPCS: 11602; 11646; 11441; 93005; 85025; 80048; 36415; 88331; 88332; 88305; 71046; J2704; J3010; J0690; J7120; J2405

== ENCOUNTER 2021-12-30 11:18 | Emergency (ER) | payer OTHER ==
--- OUTSIDE RECORDS SUMMARY | 2021-12-30 11:21 | XMS REPORT | Continuity of Care Document ---
:[address] [facility] t Address [address] [place] [address] Care Team Providers Name Role Phone PCP, DOES NOT HAVE A Primary Care Physician Unavailable Mallika Alvarado Attending Clinician Unavailable JEFF WOODSON Attending Clinician Unavailable JEFF WOODSON Admitting Clinician Unavailable Payers Payer Name Policy Type Policy Number Effective Date Expiration Date [place] MEDICARE PART A [id number] 1999 \T\ B 00:00:00 [employer] INDEMNITY [id number] 2013 2021 00:00:00 00:00:00 Problems This patient has no known problems. Allergies, Adverse Reactions, Alerts Allergy Allergy Status Severity Reaction(s) Onset Inactive Treating Comm ents Source Name Type Date Date Clinician NO KNOWN Drug Active [facility] ALLERGIE Class [facility] Medications Ordered Filled Start Stop Current Ordering Indication Dosage Frequency Signature Comments Components Source Medication Medication Date Date Medication? Clinician (SIG) Name Name Lovastatin Lovastatin Yes Mervin [address] [facility] Meclizine Meclizine Yes Mervin [address] [facility] HCl HCl [facility]varado as needed [facility] HydrALAZINE HydrALAZINE Yes Mervin [address] [facility] HCl HCl [facility]varado with food [facility] Melatonin Melatonin Yes Mervin [address] [facility] Alvarado at bedtime [facility] Melatonin Melatonin Yes Mervin as [facility] directed [facility] Vitamin D3 Vitamin D3 Yes Mervin [address] [facility]varado [facility] Carbidopa-L Carbidopa-L Yes Mervin [address] [facility] evodopa evodopa Alvarado [facility] Metoprolol Metoprolol Yes Mervin [address] [facility] Tartrate Tartrate [facility]varado with food [facility] Procedures This patient has no known procedures. Encounters Start End Encounter Admission Attending Care Care Encounter Source Date/Time Date/Time Type Type Clinicians Facility Department ID 2021-11-15 Outpatient Alvarado, [facility] 09:59:01 Mervin [id number] [facility] 2021-11-14 Outpatient Alvarado, [facility] 13:30:02 Mervin [id number] [facility] 2021-10-26 Outpatient Alvarado, [facility] 14:02:44 Mervin [id number] [facility] 2021-10-26 Outpatient Alvarado, [facility] 13:57:24 Mervin [id number] [facility] 2021-10-26 Outpatient Alvarado, [facility] 12:41:36 Mervin [id number] [facility] 2021-10-26 Outpatient Alvarado, [facility] 12:41:17 Mervin [id number] [facility] 2021-10-26 Outpatient Alvarado, [facility] 12:38:19 Mervin [id number] [facility] 2021-10-26 Outpatient Alvarado, [facility] 11:17:22 Mervin [id number] [facility] 2021-10-26 Outpatient Alvarado, [facility] 11:17:16 Mervin [id number] [facility] 2021-10-26 Outpatient Alvarado, [facility] 11:16:21 Mervin [id number] [facility] 2021-10-26 Outpatient Alvarado, [facility] 11:12:17 Mervin [id number] [facility] 2021-11-15 2021-11-15 ambulatory [facility] [id number] [facility] 2021-07-29 2021-07-29 Outpatient [facility] [id number] [facility] 2021-07-28 2021-07-28 [facility] [id number] [facility] 2021-07-12 2021-07-12 [facility] [id number] [facility] 2021-06-16 2021-06-16 Outpatient [facility] [id number] [facility] 2021-06-09 2021-06-09 Out[facility] [id number] [facility] 2021-05-04 2021-05-04 Out[facility] [id number] [facility] 2021-04-12 2021-04-12 Outpatient [facility] [id number] [facility] 2021-04-12 2021-04-12 Out[facility] [id number] [facility] 2021-04-12 2021-04-12 Out[facility] [id number] [facility] 2021-03-16 2021-03-16 [facility] [id number] [facility]00 [facility] 2020-12-16 2020-12-16 Outpatient [facility] [id number] [facility] 2020-09-17 2020-09-17 [facility] [id number] [facility] 2020-06-25 2020-06-25 [facility] [id number] [facility] 2020-06-18 2020-06-18 [facility] [id number] 09:50:00 09:50:00 [place] [employer] [facility] 2020-04-19 2020-04-19 [facility] [id number] 13:00:00 13:00:00 [facility] Clin[facility] 2020-03-18 2020-03-18 [facility] [id number] 14:30:00 14:30:00 t [place] [employer] - Drive [facility] Clin[facility] 2020-03-18 2020-03-18 [facility] [id number] 14:00:00 14:00:00 t [place] [employer] [facility] Clin[facility] 2020-03-01 2020-03-01 [facility] [id number] 13:30:00 13:30:00 t [facility] [place] [facility] 2020-01-26 2020-01-26 [facility] [id number] 13:43:00 13:43:00 [place] [facility] 2020-01-07 2020-01-07 [facility] [id number] 14:30:00 14:30:00 t [facility] [place] [facility] 2019-12-04 2019-12-04 [facility] [id number] 16[facility]19[facility]00 16:19:00 [facility] [employer] [facility] 2019-12-04 2019-12-04 [facility] [id number] 15:30:00 15:30:00 t [facility] 2019-11-26 2019-11-26 [id number] [facility] 06:30:00 11:05:00 SUJATHA saw [facility] 2019-11-24 2019-11-24 [id number] [facility] 11:15:00 11:15:00 SUJATHA saw [facility] Results This patient has no known results.
--- NOTE | 2021-12-30 13:29 | RAD REPORT ---
EXAM DESCRIPTION: US - Extrem Venous W Compress Flex - 12/30/2021 12:52 pm CLINICAL HISTORY: Pain;Swelling COMPARISON: None. TECHNIQUE: Real-time sonographic evaluation of the bilateral lower extremity common femoral, superfi cial femoral, popliteal and posterior tibial veins was performed. FINDINGS: Normal compressibility, flow augmentation, phasic flow and spontaneous flow are identified in the left and right lower extremity common femoral, superficial femoral, popliteal and posterior t ibial veins. No intraluminal filling defects seen. IMPRESSION: No DVT in either lower extremity.
--- NOTE | 2021-12-30 13:59 | RAD REPORT ---
EXAM DESCRIPTION: RAD - Hip Left 2 View - 12/30/2021 1:39 pm CLINICAL HISTORY: PAINpersisting following a fall several days earlier COMPARISON: Hip Left 2 View dated 07/10/2018 FINDINGS: AP and frogleg views of the left hip were obtained. There is no fracture or dislocation. No AVN or focal femoral head abnormality. No acute or destructiv e bony process seen. No measurable degenerative change at the hip joint. No soft tissue abnormality. No significant changes from the 2018 comparison. Report was delayed due to technical issues that developed during a PACS/IT service. IMPRESSION: Negative left hip examination for acute or significant findings.
--- NOTE | 2021-12-30 14:00 | RAD REPORT ---
EXAM DESCRIPTION: RAD - Hip Right 2 View - 12/30/2021 1:39 pm CLINICAL HISTORY: PAINpersisting following a fall several days earlier COMPARISON: Hip Right 2 View dated 11/19/2019 FINDINGS: AP and frog-leg views of the right hip were obtained. There is no fracture or dislocation. No AVN or focal head abnormality. No acute or destructive bony p rocess seen. Very minimal hip joint degenerative changes are present. No suspicious soft tissue findi ng. No significant changes have occurred since the November 2019 study. Reporting was delayed due to technical issues that developed during a schedule PACS/IT service. IMPRESSION: Negative right hip examination for acute or significant findings.
--- NOTE | 2021-12-30 14:02 | RAD REPORT ---
EXAM DESCRIPTION: RAD - Pelvis - 12/30/2021 1:39 pm CLINICAL HISTORY: BLUNT TRAUMA, persistent pelvic and hip pain following fall COMPARISON: Hip Bilateral With Pelvis dated 04/12/2021 TECHNIQUE: AP imaging of the pelvis was obtained. FINDINGS: No fracture of the bony pelvis. No fracture, dislocation or other acute hip joint finding. Hip joint degenerative change is very minimal. Patient has mild for age bilateral SI joint degenerat saleem change with no lytic or blastic changes. Sacral ala appear to be intact. Patient has advanced low er lumbar disc and endplate degenerative change with left lateral lumbar tilt or scoliosis. Lumbar fi ndings are not fully assessed on this study. No soft tissue abnormality. Reporting was delayed due to technical issues that developed during a schedule PACS/IT service IMPRESSION: Negative pelvis for acute or significant findings.
--- NOTE | 2021-12-30 14:10 | EDPHYS ---
Physician Documentation [facility] Name: Barbi Rodriges Age: 86 yrs Sex: Female : 1935 Arrival Date: 12/30/2021 Time: 11:20 Bed 28 Private MD: Cong [facility] ED Physician Cecil Sr HPI: 12/30 12:35 This 86 yrs old Female presents to ER via Wheelchair with complaints of Leg Swelling - rn sent by cong r/o dvt. 12:35 This 86 yrs old Female presents to ER via Wheelchair with complaints of Leg Swelling - rn sent by cong r/o dvt. 12:35 Family member reports bilateral leg swelling over this last week, began after fall from rn standing 5 days ago[address] Seen by Dr. Goncalves after fall and had neg xrays of feet. Seen today by Dr. Alvarado and sent here to rule out DVT. Pt ambulatory, does not feel like anything is broken. Reports a little pain in both hips. No back injury or pain. States has had swelling of legs in past but worse over last few days. Also, has been mainly sedentary after fall. . Onset: The symptoms/episode began/occurred 1 week(s) ago. Severity of symptoms: At their worst the symptoms were mild in the emergency department the symptoms are unchanged. The patient has experienced similar episodes in the past. The patient has been recently seen by a physician:. Historical: - Allergies: 13:21 No Known Allergies; ld1 - PMHx: 13:21 High Cholesterol; Hypertension; Parkinsons; TIA; ld1 - Immunization history:: Adult Immunizations up to date, Client reports receiving the 2nd dose of the Covid vaccine. - Family history:: not pertinent. - Social history:: Smoking status: Patient denies any tobacco usage or history of. Patient/guardian denies using alcohol. - Hospitalizations: : No recent hospitalization is reported. ROS: 12:35 Constitutional: Negative for fever, chills, and weight loss, Eyes: Negative for injury, rn pain, redness, and discharge, Neck: Negative for injury, pain, and swelling, Cardiovascular: Negative for chest pain, palpitations Respiratory: Negative for shortness of breath, cough, wheezing, and pleuritic chest pain, Abdomen/GI: Negative for abdominal pain, nausea, vomiting, diarrhea, and constipation, MS/Extremity: + pain to both hips, + swelling to both lower legs. Skin: Negative for injury, rash, and discoloration, Neuro: Negative for headache, weakness, numbness, tingling, and seizure. Exam: 12:35 Constitutional: This is a well developed, well nourished patient who is awake, alert, rn and in no acute distress. Head/Face: Normocephalic, atraumatic. Cardiovascular: Regular rate and rhythm. No pulse deficits. Respiratory: No increased work of breathing, no retractions or nasal flaring. Abdomen/GI: Soft, non-tender Skin: Warm, dry with normal turgor. Normal color with no rashes, no lesions, and no evidence of cellulitis. MS/ Extremity: Pulses equal, no cyanosis. Neurovascular intact. Mild pain with ROM bilateral hips without focal tenderness. + non-pitting edema of bilateral feet and ankles without skin changes. No cyanosis. Neuro: Awake and alert, GCS 15 Vital Signs: 11:25 BP 117 / 59; Pulse 68; Resp 17; Temp 98.8(TE); Pulse Ox 99% ; Weight 58.97 kg; Height 5 ab2 ft. 4 in. (162.56 cm); Pain 0/10; 13:21 BP 115 / 63; Pulse 72; Resp 18; Pulse Ox 99% on R/A; Pain 0/10; ld1 14:23 BP 126 / 70; Pulse 71; Resp 18; Pulse Ox 100% on R/A; Pain 0/10; ld1 11:25 Body Mass Index 22.31 (58.97 kg, 162.56 cm) ab2 MDM: 12:05 Patient medically screened. rn 14:08 Differential Diagnosis DVT, contusion, fracture, edema. rn 14:09 Data reviewed: vital signs, nurses notes, radiologic studies, plain films, ultrasound, rn and as a result, I will discharge patient. Counseling: I had a detailed discussion with the patient and/or guardian regarding: the historical points, exam findings, and any diagnostic results supporting the discharge/admit diagnosis, lab results, radiology results, the need for outpatient follow up, to return to the emergency department if symptoms worsen or persist or if there are any questions or concerns that arise at home. Special discussion: I discussed with the patient/guardian in detail that at this point there is no indication for admission to the hospital. It is understood, however, that if the symptoms persist or worsen the patient needs to return immediately for re-evaluation. Based on the history and exam findings, there is no indication for further emergent testing or inpatient evaluation. I discussed with the patient/guardian the need to see the primary care provider for further evaluation of the symptoms. 12/30 11:30 Order name: Extrem Venous W Compression Flex US; Complete Time: 14:09 rn 12/30 12:12 Order name: XRAY Hip LEFT 2 view; Complete Time: 14:09 rn 12/30 12:12 Order name: XRAY Hip RIGHT 2 view; Complete Time: 14:09 rn 12/30 12:12 Order name: XRAY Pelvis; Complete Time: 14:09 rn Administered Medications: No medications were administered Disposition Summary: 12/30/21 14:10 Discharge Ordered Location: Home rn Problem: new rn Symptoms: have improved rn Condition: Stable rn Diagnosis - Edema, unspecified rn Followup: rn - With: Private Physician - When: As needed - Reason: Recheck today's complaints, Re-evaluation by your physician Discharge Instructions: - Discharge Summary Sheet rn - Peripheral Edema rn Forms: - Medication Reconciliation Form rn - Thank You Letter rn - Antibiotic recording studio intern - Prescription Opioid Use rn Signatures: Dispatcher [employer] Cecil Roberson MD MD rn Dibbern, Lauren RN RN ld1
--- NOTE | 2021-12-30 14:10 | ER ---
Nurse's Notes [facility] Name: Barbi Rodriges Age: 86 yrs Sex: Female : 1935 Arrival Date: 12/30/2021 Time: 11:20 Bed 28 Private MD: Mervin Alvarado Diagnosis: Edema, unspecified Presentation: 12/30 11:25 Chief complaint: Patient's son or daughter states: "She has had swelling in her feet ab2 and ankles since having a fall on Sunday. did X-rays and said they were fine. Dr Alvarado called and told us to come here to rule out a DVT." Pt denies any pain. Coronavirus screen: Vaccine status: Patient reports receiving the 2nd dose of the covid vaccine. Client denies travel out of the [place] in the last 14 days. At this time, the client does not indicate any symptoms associated with coronavirus-19. Ebola Screen: Patient negative for fever greater than or equal to 101.5 degrees Fahrenheit, and additional compatible Ebola Virus Disease symptoms Patient denies exposure to infectious person. Patient denies travel to an Ebola-affected area in the 21 days before illness onset. No symptoms or risks identified at this time. Initial Sepsis Screen: Does the patient meet any 2 criteria? No. Patient's initial sepsis screen is negative. Does the patient have a suspected source of infection? No. Patient's initial sepsis screen is negative. Risk Assessment: Do you want to hurt yourself or someone else? Patient reports no desire to harm self or others. Onset of symptoms is unknown. 11:25 Method Of Arrival: Wheelchair ab2 11:25 Acuity: HEATHER 3 ab2 Triage Assessment: 11:28 General: Appears in no apparent distress. comfortable, Behavior is calm, cooperative, ab2 appropriate for age. Pain: Denies pain. Neuro: Level of Consciousness is awake, alert, obeys commands, Oriented to person, place, time, situation, Appropriate for age Wellness Consultant are equal bilaterally. Respiratory: Airway is patent Respiratory effort is even, unlabored, Respiratory pattern is regular, symmetrical. Historical: - Allergies: 13:21 No Known Allergies; ld1 - PMHx: 13:21 High Cholesterol; Hypertension; Parkinsons; TIA; ld1 - Immunization history:: Adult Immunizations up to date, Client reports receiving the 2nd dose of the Covid vaccine. - Family history:: not pertinent. - Social history:: Smoking status: Patient denies any tobacco usage or history of. Patient/guardian denies using alcohol. - Hospitalizations: : No recent hospitalization is reported. Screenin:21 Abuse screen: Denies threats or abuse. Denies injuries from another. Nutritional ld1 screening: No deficits noted. Tuberculosis screening: No symptoms or risk factors identified. Fall Risk None identified. Assessment: 13:20 General: Appears in no apparent distress. comfortable, Behavior is calm, cooperative, ld1 appropriate for age. Pain: Complains of pain in right hip and left hip Pain does not radiate. Pain currently is 6 out of 10 on a pain scale. Quality of pain is described as throbbing, Pain began suddenly, Is intermittent. Neuro: Level of Consciousness is awake, alert, obeys commands, Oriented to person, place, time, situation, Appropriate for age. Cardiovascular: Capillary refill < 3 seconds Patient's skin is warm and dry. Rhythm is regular. Respiratory: Airway is patent Respiratory effort is even, unlabored, Respiratory pattern is regular, symmetrical. GI: Abdomen is flat, non-distended. : No signs and/or symptoms were reported regarding the genitourinary system. EENT: No signs and/or symptoms were reported regarding the EENT system. Derm: No signs and/or symptoms reported regarding the dermatologic system. Musculoskeletal: No signs and/or symptoms reported regarding the musculoskeletal system. 14:23 Reassessment: Patient appears in no apparent distress at this time. No changes from ld1 previously documented assessment. Patient and/or family updated on plan of care and expected duration. Pain level reassessed. Patient is alert, oriented x 3, equal unlabored respirations, skin warm/dry/pink. Vital Signs: 11:25 BP 117 / 59; Pulse 68; Resp 17; Temp 98.8(TE); Pulse Ox 99% ; Weight 58.97 kg; Height 5 ab2 ft. 4 in. (162.56 cm); Pain 0/10; 13:21 BP 115 / 63; Pulse 72; Resp 18; Pulse Ox 99% on R/A; Pain 0/10; ld1 14:23 BP 126 / 70; Pulse 71; Resp 18; Pulse Ox 100% on R/A; Pain 0/10; ld1 11:25 Body Mass Index 22.31 (58.97 kg, 162.56 cm) ab2 ED Course: 11:20 Patient arrived in ED. as 11:20 Mervin Alvarado DO is Private Physician. as 11:28 Triage completed. ab2 11:28 Arm band placed on right wrist. ab2 12:02 Summer Ceja, RN is Primary Nurse. ld1 12:05 Cecil Sr MD is Attending Physician. rn 12:54 Extrem Venous W Compression Flex US In Process Unspecified. EDMS 13:21 Patient has correct armband on for positive identification. Placed in gown. Bed in low ld1 position. Call light in reach. Side rails up X2. phototypesetting equipment monitor on. Pulse ox on. NIBP on. Door closed. Noise minimized. Warm blanket given. 13:21 No provider procedures requiring assistance completed. ld1 13:41 XRAY Hip LEFT 2 view In Process Unspecified. EDMS 13:41 XRAY Hip RIGHT 2 view In Process Unspecified. EDMS 13:41 XRAY Pelvis In Process Unspecified. EDMS 14:24 Patient did not have IV access during this emergency room visit. ld1 Administered Medications: No medications were administered Outcome: 14:10 Discharge ordered by . rn 14:24 Discharged to home ambulatory, with family. ld1 14:24 Condition: stable 14:24 Discharge instructions given to patient, family, Instructed on discharge instructions, follow up and referral plans. Demonstrated understanding of instructions, follow-up care. 14:24 Patient left the ED. ld1 Signatures: Dispatcher [employer] Yusra Khan as Cecil Sr MD MD rn Dibbern, Lauren, DAVID RN ld1 Lavelle Boone ab2
[2021-12-30 14:58] VITALS: TEMP 98.8
[2021-12-30 15:01] VITALS: BP 126/70; O2SAT 100
== END 2021-12-30 14:24 | disposition home or self-care (01) ==
LOC: ER 11:18
DX: R60.9 Edema, unspecified (principal); M25.552 Pain in left hip; M25.551 Pain in right hip; I10 Essential (primary) hypertension; G20 Parkinson's disease; E78.00 Pure hypercholesterolemia, unspecified; Z86.73 Personal history of transient ischemic attack (TIA), and cerebral infarction without residual deficits
CPT/HCPCS: 72170; 93970; 99284